=== PATIENT | male | born 2000 | race Caucasian/White ===

== ENCOUNTER 2023-12-16 01:02 | Emergency (ER) | payer SELFPAY ==
[2023-12-16 02:03] LABS: #Eosinphils 0.2 10x3/uL (0.0-0.5); #Monocytes 0.6 10x3/uL (0.0-1.1); #Neutrophils 4.8 10x3/uL (1.5-8.4); %Basophils 0.4 % (0.0-2.0); %Eosinophils 2.4 % (0.0-6.0); %Lymphocytes 40.5 % (18.0-47.0); %Monocytes 6.1 % (0.0-10.0); %Neutrophils 50.4 % (40.0-75.0); ALT (SGPT) 41 U/L (8-55); AST (SGOT) 46 U/L (5-34); Albumin 5.1 g/dL (3.5-5.0); Alkaline Phosphatase 62 U/L (40-110); Anion Gap 21 mmol/L (10-20); BUN (Urea Nitrogen) 16 mg/dL (8.9-20.6); Bilirubin, Total 0.6 mg/dL (0.2-1.2); Calc. Creatinine Clearance 0 mL/min (70-130); Calcium 9.7 mg/dL (7.8-10.44); Carbon Dioxide 17 mmol/L (22-29); Chloride 106 mmol/L (98-107); Estimated GFR 102; Glucose 92 mg/dL (70-105); Hematocrit 48.2 % (38.8-50.0); Hemoglobin 17.4 g/dL (13.5-17.5); Lipase 225 U/L (8-78); Mean Corpuscular HGB CONC 36.1 g/dL (32.0-36.0); Mean Corpuscular Hemoglobin 30.4 pg (27.0-33.0); Mean Corpuscular Volume 84.3 fl (81.2-95.1); Platelet Count 282 10x3/uL (150-450); Potassium 3.5 mmol/L (3.5-5.1); Protein, Total 8.1 g/dL (6.0-8.3); RBC Distribution Width 11.4 % (11.5-14.5); Red Blood Cell (RBC) Count 5.72 10x6/uL (4.32-5.72); Sodium 140 mmol/L (136-145); White Blood Cell (WBC) Count 9.5 10x3/uL (3.5-10.5)
== END 2023-12-16 03:23 | disposition home or self-care (01) ==
LOC: CSHERS 01:02
DX: R07.2 Precordial pain (principal); K85.90 Acute pancreatitis without necrosis or infection, unspecified
CPT/HCPCS: 71045; 80053; 83690; 85025; 93005; 93010